=== PATIENT | female | born 1995 | race Hispanic/Latino ===

== ENCOUNTER 2023-12-18 14:45 | Emergency (ER) | payer BC, OTHER, SELFPAY ==
[2023-12-18] VITALS (7 sets, daily range): BP systolic 98–142; BP diastolic 58–74; PULSE 74–92; RESP 16; TEMP 36.6; O2SAT 99–100; BMI 26.2
--- NOTE | 2023-12-18 14:53 | EKG_ITS ---
[address] [address] Test Date: 2023-12-18 Pat Name: Jackie Trotter Department: Room: Gender: Female Labor Delivery Specialist: GEM : 1995 Requested By: Order Number: [id number] Reading MD: Brian Coughlin Measurements Intervals [place] Rate: 80 P: 8 [place]: 136 QRS: 21 QRSD: 80 T: 14 QT: 380 QTc: 438 Interpretive Statements Normal sinus rhythm with sinus arrhythmia Electronically Signed On 12-18-2023 18:26:45 PDT by Brian Coughlin
--- NOTE | 2023-12-18 15:08 | DI.CT.S_ITS ---
PROCEDURE: CT ABDOMEN PELVIS W CON INDICATIONS: r/o appy. Right lower quadrant pain. TECHNIQUE: After the administration of intravenous contrast, axial sections acquired from the lung bases to the pubic symphysis. Coronal and sagittal reformats were performed. For radiation dose reduction, the following was used: automated exposure control, adjustment of mA and/or kV according to patient size. COMPARISON: None. FINDINGS: Image quality: Diagnostic. Lower Chest: No significant findings. ABDOMEN: Liver: No solid mass. Gallbladder: No radiopaque gallstones or wall thickening. Biliary ducts: No biliary dilation. Pancreas: No ductal dilation. Spleen: Size is within normal limits. Adrenal Glands: No adrenal nodules. Kidneys and Ureters: No hydronephrosis. No solid mass. No complex renal cystic lesion which requires follow up. Stomach and Bowel: Normal colonic caliber, without significant wall thickening. Normal appendix. No significant diverticular disease. Peritoneum: No abnormal intraperitoneal fluid. No free air. Ventral Wall: No significant ventral hernia. Abdominal Nodes: No retroperitoneal or mesenteric adenopathy by size criteria. Vessels: Aorta and inferior vena cava are normal in size. PELVIS: Pelvic Organs: Symmetric size of the ovaries. Left-sided corpus luteum.. Bladder: No bladder wall thickening, accounting for underdistention. Pelvic Nodes: No enlarged lymph nodes. Miscellaneous: No inguinal hernias are seen. Bones: No aggressive osseous abnormality. Bilateral sacroiliitis. IMPRESSION: No findings to explain the patient's right lower quadrant pain. No nephrolithiasis. Normal gallbladder. Normal appendix. Bilateral sacroiliitis, which can be seen in the setting of other medical conditions, such as inflammatory bowel disease. Dictated by: Farhad Keith M.D. on 12/18/2023 at 15:37 Approved by: Farhad Keith M.D. on 12/18/2023 at 15:40
[2023-12-18 15:13] LABS: Add Manual Diff / Slide Review NO; Basophils Absolute Auto 100 /uL (0-100); Basophils Percent Auto 0.8 % (0-2); Eosinophils Absolute Auto 0 /uL (0-450); Eosinophils Percent Auto 0.6 % (2-4); Hematocrit 40.1 % (36-46); Hemoglobin 13.8 g/dL (12.0-16.0); Lymphocytes Absolute Auto 1700 /uL (1100-4500); Lymphocytes Percent Auto 25.7 % (25-40); Mean Corpuscular HGB Conc 34.4 % (30-36); Mean Corpuscular Hemoglobin 33.3 PG (26-34); Mean Corpuscular Volume 96.7 fL (80-100); Monocytes Absolute Auto 400 /uL (0-900); Monocytes Percent Auto 5.6 % (3-14); Neutrophils Absolute Auto 4500 /uL (1500-7000); Neutrophils Percent Auto 67.3 % (50-75); Platelet Count 226 X10^3/uL (150-400); Red Blood Cell Count 4.15 X10^6/uL (4.0-5.2); Red Cell Distribution Width 12.5 % (11.6-14.8); White Blood Cell Count 6.7 X10^3/uL (4.5-11.0)
[2023-12-18 15:29] LABS: Alanine Aminotransferase 27 IU/L (<35); Albumin 4.8 g/dL (3.5-5.0); Albumin Globulin Ratio 1.7 (1.0-2.8); Alkaline Phosphatase 72 U/L (38-126); Aspartate Aminotransferase 32 IU/L (14-36); BUN Creatinine Ratio 13.5 (6-22); Bilirubin Total 0.6 mg/dL (0.2-1.3); Blood Urea Nitrogen 7 mg/dL (7-17); Calcium 8.6 mg/dL (8.4-10.2); Carbon Dioxide 23 mmol/L (22-32); Chloride 108 mmol/L (98-107); Estimated Glomerular Filt Rate > 60 mL/min (>60); Globulin 2.8 g/dL (1.7-4.1); Glucose 76 mg/dL (70-100); HEMOLYSIS < 15 (0-50); Lipase 118 U/L (23-300); Potassium 3.7 mmol/L (3.4-5.1); Sodium 140 mmol/L (137-145); Total Protein 7.6 g/dL (6.3-8.2)
--- NOTE | 2023-12-18 16:53 | ED.GENADULT ---
HPI - General Adult General Chief complaint: Abdominal Pain Stated complaint: abd pain/[place] ref Time Seen by Provider: 12/18/23 15:01 Source: patient Mode of arrival: Ambulatory History of Present Illness HPI narrative: 28-year-old woman with 24 hours of right lower quadrant tenderness. She had a similar episode approximately 2 years ago that was determined to be a smoldering appendicitis treated successfully with antibiotics. The pain is getting worse, she is having increasing nausea. Has had no fevers. Was initially evaluated at the walk-in clinic and sent to the ER for further evaluation Related Data Allergies Allergy/AdvReac Type Severity Reaction Status Date / Time No Known Drug Allergies Allergy Verified 12/18/23 14:53 Review of Systems Review of Systems Narrative: Pertinent positive and negative findings as per HPI Patient History Social History Smoking Status: Never smoker Smoking Status: Never smoker alcohol intake frequency: a few times a week Substance Use Type: does not use Exam Initial Vital Signs Initial Vital Signs: Vital Signs Temperature 97.9 F 12/18/23 14:49 Pulse Rate 92 H 12/18/23 14:49 Respiratory Rate 16 12/18/23 14:49 Blood Pressure 142/66 H 12/18/23 14:49 Pulse Oximetry 100 12/18/23 14:49 Oxygen Delivery Method Room Air 12/18/23 14:49 General: Healthy appearing, in no acute distress. Able to give a complete and coherent history. Well-nourished well-developed HEENT: Moist mucous membranes, normal sclera with reactive pupils, Respiratory: Lungs are clear to auscultation, no wheezing no rales no rhonchi. Full and symmetrical air movement Cardiac: Regular rate and rhythm no murmurs no bruits Abdomen: Soft, nontender, good bowel tones, no flank pain Skin: Warm and dry, no rashes Neurologic: Grossly neurologically intact with no obvious asymmetries or abnormalities Psych: Cooperative, appropriate insight and affect Course Orders Ordered: ED Orders 12/18/23 14:53 EKG-12 Lead Stat 12/18/23 15:04 Complete Blood Count AUTO DIFF Stat Comprehensive Metabolic Panel Stat Lipase Stat 12/18/23 15:08 CT abdomen pelvis w con Stat Ondansetron HCl (Ondansetron 4 Mg/2 Ml Inj) 4 mg IV NOW PRN PRN Reason: Nausea And Vomiting Ondansetron HCl (Ondansetron 4 Mg Odt) 4 mg PO NOW PRN PRN Reason: Nausea And Vomiting Vital Signs Vital signs: Vital Signs - 8 hr 12/18/23 14:49 12/18/23 15:48 12/18/23 15:48 Temperature 97.9 F Pulse Rate 92 H 78 Respiratory Rate 16 Blood Pressure 142/66 H 119/74 Pulse Oximetry 100 Oxygen Delivery Method Room Air 12/18/23 16:03 12/18/23 16:05 12/18/23 16:05 Temperature Pulse Rate 80 77 Respiratory Rate Blood Pressure 105/73 Pulse Oximetry 99 100 Oxygen Delivery Method Medical Decision Making Lab Data 12/18/23 15:04 12/18/23 15:04 Labs: Lab Results 12/18/23 Range/Units 15:04 WBC 6.7 (4.5-11.0) X10^3/uL RBC 4.15 (4.0-5.2) X10^6/uL Hgb 13.8 (12.0-16.0) g/dL Hct 40.1 (36-46) % MCV 96.7 (80-100) fL MCH 33.3 (26-34) PG MCHC 34.4 (30-36) % RDW 12.5 (11.6-14.8) % Plt Count 226 (150-400) X10^3/uL Neut % (Auto) 67.3 (50-75) % Lymph % (Auto) 25.7 (25-40) % [place] % (Auto) 5.6 (3-14) % Eos % (Auto) 0.6 L (2-4) % Baso % (Auto) 0.8 (0-2) % Neut # (Auto) 4500 (9445-3843) /uL Lymph # (Auto) 1700 (8952-4648) /uL [place] # (Auto) 400 (0-900) /uL Eos # (Auto) 0 (0-450) /uL Baso # (Auto) 100 (0-100) /uL Sodium 140 (137-145) mmol/L Potassium 3.7 (3.4-5.1) mmol/L Chloride 108 H (98-107) mmol/L Carbon Dioxide 23 (22-32) mmol/L BUN 7 (7-17) mg/dL Creatinine 0.52 (0.52-1.04) mg/dL Estimated GFR > 60 (>60) mL/min BUN/Creatinine Ratio 13.5 (6-22) Glucose 76 (70-100) mg/dL Calcium 8.6 (8.4-10.2) mg/dL Total Bilirubin 0.6 (0.2-1.3) mg/dL AST 32 (14-36) IU/L ALT 27 (<35) IU/L Alkaline Phosphatase 72 (38-126) U/L Total Protein 7.6 (6.3-8.2) g/dL Albumin 4.8 (3.5-5.0) g/dL Globulin 2.8 (1.7-4.1) g/dL Albumin/Globulin Ratio 1.7 (1.0-2.8) Lipase 118 (23-300) U/L Point of Care Testing Test Results Negative Urine Dip Bedside Urine Glucose Negative Bedside Urine Bilirubin - Negative Bedside Urine Ketone - Negative Urine Specific [place] 1.005 Bedside Urine Occult Blood - Negative Bedside Urine pH 5.0 Bedside Urine Protein - Negative Bedside Urine Urobilinogen - Negative Bedside Urine Nitrite - Negative Bedside Urine Leukocytes - Negative Esterase Point of care testing: Point of Care Testing Test Results Negative Urine Dip Bedside Urine Glucose Negative Bedside Urine Bilirubin - Negative Bedside Urine Ketone - Negative Urine Specific [place] 1.005 Bedside Urine Occult Blood - Negative Bedside Urine pH 5.0 Bedside Urine Protein - Negative Bedside Urine Urobilinogen - Negative Bedside Urine Nitrite - Negative Bedside Urine Leukocytes - Negative Esterase Imaging Data CT scan - abdomen/pelvis: Radiologist's Impression: PROCEDURE: CT ABDOMEN PELVIS W CON INDICATIONS: r/o appy. Right lower quadrant pain. TECHNIQUE: After the administration of intravenous contrast, axial sections acquired from the lung bases to the pubic symphysis. Coronal and sagittal reformats were performed. For radiation dose reduction, the following was used: automated exposure control, adjustment of mA and/or kV according to patient size. COMPARISON: None. FINDINGS: Image quality: Diagnostic. Lower Chest: No significant findings. ABDOMEN: Liver: No solid mass. Gallbladder: No radiopaque gallstones or wall thickening. Biliary ducts: No biliary dilation. Pancreas: No ductal dilation. Spleen: Size is within normal limits. Adrenal Glands: No adrenal nodules. Kidneys and Ureters: No hydronephrosis. No solid mass. No complex renal cystic lesion which requires follow up. Stomach and Bowel: Normal colonic caliber, without significant wall thickening. Normal appendix. No significant diverticular disease. Peritoneum: No abnormal intraperitoneal fluid. No free air. Ventral Wall: No significant ventral hernia. Abdominal Nodes: No retroperitoneal or mesenteric adenopathy by size criteria. Vessels: Aorta and inferior vena cava are normal in size. PELVIS: Pelvic Organs: Symmetric size of the ovaries. Left-sided corpus luteum.. Bladder: No bladder wall thickening, accounting for underdistention. Pelvic Nodes: No enlarged lymph nodes. Miscellaneous: No inguinal hernias are seen. Bones: No aggressive osseous abnormality. Bilateral sacroiliitis. IMPRESSION: No findings to explain the patient's right lower quadrant pain. No nephrolithiasis. Normal gallbladder. Normal appendix. Bilateral sacroiliitis, which can be seen in the setting of other medical conditions, such as inflammatory bowel disease. Dictated by: Farhad Keith M.D. on 12/18/2023 at 15:37 MDM Narrative Medical decision making narrative: CC: 24 hours of right lower quadrant pain Data collected from: patient Differential considered: Appendicitis, ovarian abnormality, kidney stone, pyelonephritis, pelvic inflammatory disease Exam documented above, pertinent findings include: Completely benign exam. She has no reproducible significant tenderness in the right lower quadrant Lab Test results independently reviewed as above. Pertinent findings: CBC is unremarkable Chemistries are reassuring Lipase is within normal limits Urine dip does not suggest urinary tract infection U preg is negative Independently reviewed EKG: EKG shows sinus rhythm at a rate of 80 with no acute ischemic changes Imaging studies independently reviewed: CT scan is unremarkable specifically no evidence of appendicitis, kidney stones or gallstones. There is a mention of sacroiliitis Discussion: 28-year-old woman with right lower quadrant tenderness. Labs are completely reassuring as is CT scan. She states she had a large bowel movement today but does still have quite a bit of stool in the right and transverse colon. We talked about use of a laxative to see if this might make a difference and pain control. There was no evidence of pelvic abnormalities, ovarian concerns, patient is not . At this point I do not have a complete explanation for her however she does not have a life-threatening abnormality, there was no indication for additional imaging or hospitalization. Questions are answered and she is safe for discharge Discharge Plan Departure Patient Disposition: Home Clinical Impression: Abdominal pain, RLQ Instructions: DI for Abdominal Pain-Adult Activity Restrictions/Additional Instructions: Thank you for coming in today Your workup was actually very reassuring. There was no evidence of infection, kidney problems or liver problems. Your electrolytes are all within normal limits. The CT scan that we did have your abdomen shows that you do not have appendicitis, kidney stones, bowel obstruction, gallstones or alternate explanation for your abdominal pain. There was no evidence of bladder infection, kidney infection ovarian cysts or pelvic infection. You mentioned that you had a normal bowel movement today but on the CT scan there still quite a bit of stool throughout the right side of your colon and the transverse colon. You may find that laxative and completely cleaning out your colon helps alleviate the right-sided pain that you are experiencing. If you find that you are getting worse or develop any new symptoms, please feel free to return to the emergency department for further evaluation. Referrals: Monica Anthony ARNP [Primary Care Provider] - Stand Alone Forms: Patient Portal/API
== END 2023-12-18 17:13 | disposition home or self-care (01) ==
PROVIDERS: Emergency Provider Emergency Medicine; PCP Registered Nurse
DX: R10.31 Right lower quadrant pain (principal)
CPT/HCPCS: 36415; 74177; 80053; 81003; 81025; 83690; 85025; 93005; 99284; Q9967

== ENCOUNTER 2024-03-02 18:49 | Emergency (ER) | payer BC, OTHER, SELFPAY ==
[2024-03-02] VITALS (11 sets, daily range): BP systolic 95–116; BP diastolic 61–69; PULSE 109–126; RESP 14–20; TEMP 37.3; O2SAT 97–100; BMI 25.0
--- NOTE | 2024-03-02 19:37 | ED_ITS ---
HPI - General Adult General Chief complaint: Ear Stated complaint: L Ear Swollen, Neck Pain, Fever, N/V Time Seen by Provider: 03/02/24 19:12 Source: patient Mode of arrival: Ambulatory History of Present Illness HPI narrative: Patient is a 28-year-old female who is here for evaluation discomfort to her left ear, pain in her left side of neck. She denies headache, sore throat, fevers. Noticed redness and swelling to her left ear. No hearing deficits. Has not tried anything for symptoms prior to arrival. Noticed the symptoms starting earlier today. Has not tried anything for the symptoms prior to arrival. Related Data Previous Rx's Medication Instructions Recorded levofloxacin 750 mg tablet 750 mg PO DAILY 5 days #5 tabs 03/02/24 Allergies Allergy/AdvReac Type Severity Reaction Status Date / Time No Known Drug Allergies Allergy Verified 12/18/23 14:53 Review of Systems Review of Systems Narrative: See HPI Patient History Social History Smoking Status: Never smoker Smoking Status: Never smoker alcohol intake frequency: a few times a week Alcohol type: beer, wine and hard liquor Substance Use Type: does not use Exam Initial Vital Signs Initial Vital Signs: Vital Signs Temperature 99.2 F 03/02/24 18:58 Pulse Rate 126 H 03/02/24 18:58 Respiratory Rate 20 03/02/24 18:58 Blood Pressure 116/69 03/02/24 18:58 Pulse Oximetry 97 03/02/24 18:58 Oxygen Delivery Method Room Air 03/02/24 18:58 Const General: cooperative, comfortable and No ill appearing HENOR Ears: TM's normal bilaterally, EAC's normal, mastoids normal, external ear abnormal auricular tenderness on the left; no auricular hematomas and periauricular adenopathy on the left Neck Lymphatic: lymphadenopathy (Left anterior cervical, preauricular) Resp Effort & Inspection: normal respiratory effort Skin Other: Redness and swelling to the auricle of the left ear. Warm to the touch. No vesicles. Neuro General: patient alert and patient awake Course Orders Ordered: ED Orders 03/02/24 19:40 Basic Metabolic Panel Stat Complete Blood Count AUTO DIFF Stat Test Serum,Qual Stat Discontinued Medications Levofloxacin (Levaquin) 750 mg in 150 mls @ 100 mls/hr IV NOW ONE Stop: 03/02/24 21:09 Last Infusion: 03/02/24 21:28 Dose: Infused Documented By: Admin: 03/02/24 19:54 Dose: 100 mls/hr Documented By: BRISSA Ketorolac Tromethamine (Ketorolac 30 Mg/Ml Vial) 15 mg IV NOW ONE Stop: 03/02/24 19:41 Last Admin: 03/02/24 19:54 Dose: 15 mg Documented By: BRISSA Ondansetron HCl (Ondansetron 4 Mg/2 Ml Inj) 4 mg IV NOW ONE Stop: 03/02/24 20:47 Last Admin: 03/02/24 21:00 Dose: 4 mg Documented By: BILLY Ondansetron HCl (Ondansetron 4 Mg Odt Prepack) 1 bottle MISC DIRECTED ONE Stop: 03/02/24 21:10 Last Admin: 03/02/24 21:18 Dose: 1 bottle Documented By: BILLY Vital Signs Vital signs: Vital Signs - 8 hr 03/02/24 18:58 03/02/24 19:12 03/02/24 19:12 Temperature 99.2 F Pulse Rate 126 H 119 H Respiratory Rate 20 Blood Pressure 116/69 108/68 Pulse Oximetry 97 100 Oxygen Delivery Method Room Air 03/02/24 19:30 03/02/24 19:36 03/02/24 19:36 Temperature Pulse Rate 121 H 117 H Respiratory Rate Blood Pressure 95/64 Pulse Oximetry 100 99 Oxygen Delivery Method 03/02/24 20:00 03/02/24 20:00 03/02/24 20:20 Temperature Pulse Rate 112 H Respiratory Rate Blood Pressure 101/63 103/64 Pulse Oximetry 99 Oxygen Delivery Method 03/02/24 20:20 03/02/24 20:30 03/02/24 20:30 Temperature Pulse Rate 119 H 115 H Respiratory Rate Blood Pressure 100/61 Pulse Oximetry 98 98 Oxygen Delivery Method Room Air 03/02/24 20:45 03/02/24 20:45 03/02/24 21:00 Temperature Pulse Rate 112 H 113 H Respiratory Rate 14 Blood Pressure 104/64 Pulse Oximetry 99 98 Oxygen Delivery Method Room Air 03/02/24 21:00 03/02/24 21:15 03/02/24 21:15 Temperature Pulse Rate 110 H Respiratory Rate 18 Blood Pressure 104/64 107/65 Pulse Oximetry 98 Oxygen Delivery Method Room Air 03/02/24 21:30 03/02/24 21:30 Temperature Pulse Rate 111 H 109 H Respiratory Rate 17 20 Blood Pressure 107/67 Pulse Oximetry 98 Oxygen Delivery Method Room Air Medical Decision Making Lab Data 03/02/24 19:40 03/02/24 19:40 Labs: Lab Results 03/02/24 Range/Units 19:40 WBC 14.5 H (4.5-11.0) X10^3/uL RBC 4.25 (4.0-5.2) X10^6/uL Hgb 14.1 (12.0-16.0) g/dL Hct 41.4 (36-46) % MCV 97.6 (80-100) fL MCH 33.3 (26-34) PG MCHC 34.1 (30-36) % RDW 12.8 (11.6-14.8) % Plt Count 239 (150-400) X10^3/uL Neut % (Auto) 87.5 H (50-75) % Lymph % (Auto) 5.7 L (25-40) % [place] % (Auto) 6.3 (3-14) % Eos % (Auto) 0.2 L (2-4) % Baso % (Auto) 0.3 (0-2) % Neut # (Auto) 22418 H (2898-4951) /uL Lymph # (Auto) 800 L (1237-5906) /uL [place] # (Auto) 900 (0-900) /uL Eos # (Auto) 0 (0-450) /uL Baso # (Auto) 0 (0-100) /uL Sodium 137 (137-145) mmol/L Potassium 3.7 (3.4-5.1) mmol/L Chloride 101 (98-107) mmol/L Carbon Dioxide 25 (22-32) mmol/L BUN 8 (7-17) mg/dL Creatinine 0.55 (0.52-1.04) mg/dL Estimated GFR > 60 (>60) mL/min BUN/Creatinine Ratio 14.5 (6-22) Glucose 103 H (70-100) mg/dL Calcium 9.5 (8.4-10.2) mg/dL Serum , Qual Negative (Negative) MDM Narrative Medical decision making narrative: Patient has an obvious inflammation or infection to the left ear. There is nothing in the history that would indicate that this is a inflammation such as a insect bite or allergic reaction. It is tender. Warm to the touch. She was slightly tachycardic and also has a leukocytosis. The concern would be that this is an infection. She was given a dose of antibiotics here in the ER. Is tolerating oral intake. Plan will be to put her on oral antibiotics. I considered admission to the hospital since it does involve the left ear in the concerned to be an infection of the cartilage however given the fact that she was tolerating oral intake and her clinical appearance will attempt outpatient antibiotics. She was given strict return precautions. She expressed understanding and agreement. Discharge Plan Departure Patient Disposition: Home Clinical Impression: Cellulitis Instructions: DI for Cellulitis -- Adult Activity Restrictions/Additional Instructions: You can take Tylenol and/or ibuprofen for any fevers. Your next dose of antibiotics will be tomorrow 03/03/2024. A prescription was sent to [email or web address] per your request. You should start to see some improvement in the next 24-48 hours. If your symptoms are worsening please return to the emergency department for further evaluation. Prescriptions: New levofloxacin 750 mg tablet 750 mg PO DAILY 5 Days Qty: 5 0RF Referrals: Monica Anthony ARNP [Primary Care Provider] - Stand Alone Forms: Patient Portal/API
[2024-03-02 19:47] LABS: Add Manual Diff / Slide Review NO; Basophils Absolute Auto 0 /uL (0-100); Basophils Percent Auto 0.3 % (0-2); Eosinophils Absolute Auto 0 /uL (0-450); Eosinophils Percent Auto 0.2 % (2-4); Hematocrit 41.4 % (36-46); Hemoglobin 14.1 g/dL (12.0-16.0); Lymphocytes Absolute Auto 800 /uL (1100-4500); Lymphocytes Percent Auto 5.7 % (25-40); Mean Corpuscular HGB Conc 34.1 % (30-36); Mean Corpuscular Hemoglobin 33.3 PG (26-34); Mean Corpuscular Volume 97.6 fL (80-100); Monocytes Absolute Auto 900 /uL (0-900); Monocytes Percent Auto 6.3 % (3-14); Neutrophils Absolute Auto 12700 /uL (1500-7000); Neutrophils Percent Auto 87.5 % (50-75); Platelet Count 239 X10^3/uL (150-400); Red Blood Cell Count 4.25 X10^6/uL (4.0-5.2); Red Cell Distribution Width 12.8 % (11.6-14.8); White Blood Cell Count 14.5 X10^3/uL (4.5-11.0)
[2024-03-02] MEDS: KETOROLAC 30 MG/ML VIAL 15 MG IV (19:54)
[2024-03-02] MEDS: levoFLOXacin 750 MG/150 ML PIGGYBACK 100 MG IV (19:54)
[2024-03-02 20:07] LABS: BUN Creatinine Ratio 14.5 (6-22); Blood Urea Nitrogen 8 mg/dL (7-17); Calcium 9.5 mg/dL (8.4-10.2); Carbon Dioxide 25 mmol/L (22-32); Chloride 101 mmol/L (98-107); Estimated Glomerular Filt Rate > 60 mL/min (>60); Glucose 103 mg/dL (70-100); HEMOLYSIS < 15 (0-50); Potassium 3.7 mmol/L (3.4-5.1); Pregnancy Test Serum,Qual Negative (Negative); Sodium 137 mmol/L (137-145)
[2024-03-02] MEDS: ONDANSETRON 4 MG/2 ML INJ IV (21:00)
[2024-03-02] MEDS: ONDANSETRON 4 MG ODT PREPACK 1 BOTTLE MISC (21:18)
== END 2024-03-02 21:48 | disposition home or self-care (01) ==
PROVIDERS: Emergency Provider Emergency Medicine; PCP Registered Nurse
DX: H60.12 Cellulitis of left external ear (principal); R00.0 Tachycardia, unspecified
CPT/HCPCS: 36415; 80048; 84703; 85025; 96365; 96366; 96375; 99284; J1885; J1956; J2405

== ENCOUNTER → 2024-09-09 12:42 | Outpatient (CLI) | payer BC, OTHER, SELFPAY ==
--- NOTE | 2024-09-09 12:44 | DI.US.S_ITS ---
US breast LT limited: 09/09/2024. BI-RADS: 1 CLINICAL: 29-year old female for bilateral diagnostic mammogram and left diagnostic breast ultrasound. Tyrer-Cuzick lifetime risk of 22.8%. Current reported family history of breast cancer: mother. History of ovarian cancer in one first-degree relative. The patient reports pain (1 year) in the left breast. PRIOR EXAMS: CT abdomen and pelvis 12/18/2023. ULTRASOUND TECHNIQUE Real-time gordon scale imaging of the area of clinical interest was performed with image documentation. TARGETED Left Breast Ultrasound: Real-time ultrasound exam was performed focused to area of clinical and/or imaging concern. ULTRASOUND FINDINGS Left: Inner at 9:00, Retroareolar: No mass or cyst. No suspicious sonographic finding present. Left: Upper at 12:00, Retroareolar: No mass or cyst. No suspicious sonographic finding present. Left: Axillary Tail: No suspicious sonographic finding present. IMPRESSION: Left * No evidence of malignancy. RECOMMENDATIONS * Clinical follow-up is recommended, and further management of palpable abnormalities or other focal signs or symptoms should be based on the results of clinical evaluation. If palpable abnormality or other concerning symptom persists or progresses, further clinical evaluation should be considered. Bilateral * Annual screening mammography beginning at age 40. OVERALL ASSESSMENT CATEGORY BI-RADS-1: Negative. ELECTRONICALLY SIGNED: Gumaro Jacques M.D. on 09/09/2024 at 01:25:37 PM PT Interpreting Station ID: [id number]
== END ==
PROVIDERS: PCP Registered Nurse; Referring Provider Registered Nurse; Visit Provider Registered Nurse
DX: N64.4 Mastodynia (principal); Z80.3 Family history of malignant neoplasm of breast; Z80.41 Family history of malignant neoplasm of ovary
CPT/HCPCS: 76642

== ENCOUNTER → 2024-09-09 12:45 | Outpatient (CLI) | payer BC, OTHER, SELFPAY | PROVIDERS: PCP Registered Nurse; Referring Provider Registered Nurse; Visit Provider Registered Nurse | DX: N64.4 Mastodynia (principal) ==